=== PATIENT | male | born 1945 | race Caucasian/White ===

== ENCOUNTER 2020-06-15 13:41 | Outpatient (CLI) | payer MEDICARE ==
[2020-06-15] MEDS ORDERED: Iopamidol-370 76% 500 ML 1 ML ONE (14:23)
--- NOTE | 2020-06-15 16:54 | ULT ---
US Testicular W Doppler History: Malignant neoplasm of the urinary bladder Comparison: None. Findings: Real-time grayscale, color and spectral analysis of the testicles was performed. Right testicle measures 4 x 1.6 x 1.9 cm and the left testicle measures 3.3 x 1.1 x 2.3 cm. Mild hete rogeneous echotexture without mass bilaterally, likely age-related. Adequate vascular flow. Both epididymides are normal. Small right hydrocele. Small left epididymal head cyst measuring 3 mm. Impression: 1. No testicular mass. 2. Small right hydrocele. 3. Benign small 3-4 mm left epididymal head cyst.
--- NOTE | 2020-06-16 09:31 | CT ---
CT Abdomen Pelvis W WO con History: Bladder cancer Comparison: None. Findings: Peripheral nodule right middle lobe axial image 7 measures 7 mm. Remainder the lung bases a re clear. Small fat-containing posterior diaphragmatic hernia on the right. No significant pericardial effusion. Dense mitral annular calcifications. Multiple cysts left lobe of the liver. On the noncontrast portion examination no nephroureterolithiasis or hydroureteronephrosis. No seconda ry evidence of a recently passed stone. No abnormal enhancing renal mass. No abnormal enhancing urothelial mass. Simple cysts interpolar left kidney posterior cortex measures 6 mm. Focal ectasia infrarenal abdominal aorta only measuring 18 mm. On the delayed phase of contrast sequence there are no filling defects within the renal calyces, pelv is and/or ureters. No filling defect is appreciated within the urinary bladder. Dense prostate calcifications. No retroperitoneal periaortic or iliac adenopathy. The spleen, pancreas, adrenal glands are unremarkable. No dilated loops of large or small bowel. The appendix is felt to be visualized and appears normal. Type IIIb lumbosacral transitional vertebra. Moderate disc space narrowing at L4/L5 with disc osteophyte complex. No suspicious osteolytic or oste oblastic lesions. Left common iliac arterial stent appears patent. Right femoral artery stent patency cannot be evaluat ed. Impression: 1. 7 mm peripheral nodule right middle lobe for which CT of the chest in 3-6 months is recommended. 2. No nephroureterolithiasis or hydroureteronephrosis. No secondary evidence of a recently passed sto ne. 3. No abnormal enhancing urothelial mass. 4. No abnormal enhancing renal mass. 5. Surgical clips along the left common femoral artery with evidence of prior surgery.
== END 2020-06-15 13:42 | disposition home or self-care (01) ==
LOC: BICCT 13:41
PROVIDERS: ATTEND Urology
DX: C67.9 Malignant neoplasm of bladder, unspecified (principal); R91.1 Solitary pulmonary nodule; N43.3 Hydrocele, unspecified; N50.3 Cyst of epididymis; Z98.890 Other specified postprocedural states
CPT/HCPCS: 74178; 76870; 93976; Q9967